=== PATIENT | female | born 1990 | race Caucasian/White ===

== ENCOUNTER 2016-11-23 20:19 | Emergency (ER) | payer MEDICAID, OTHER ==
[~2016-11-23] VITALS: Ht 170.2 cm; Wt 98.0 kg
[2016-11-23 20:20] VITALS: BP 132/79; PULSE 85; RESP 16; TEMP 98.8; O2SAT 98
--- NOTE | 2016-11-23 21:25 | PD ---
HPI Chief Complaint: Medical Clearance Time Seen by Provider: 21:12 Travel History International Travel<30 days: No Contact w/Intl Traveler<30days: No Traveled to known affect area: No History of Present Illness HPI The patient is a 26-year-old female who presents emergency department for a 1 month history of increasing difficulty concentrating, occasional olfactory hallucinations, generalized weakness, and difficulty attending school. The patient has a previous history of psychosis which she states is secondary to depression, anxiety, and bipolar affective disorder. The patient states she was treated at one time with lithium and Risperdal, was followed by a psychiatrist at [facility], however, stopped her medication secondary to side effects. The patient denies any suicidal or homicidal ideation. She denies any alcohol use or tobacco use. The patient does have a child at home, 4 years of age, with her . The patient recently started school once again for molecular biology. She denies any auditory or visual hallucinations. Symptoms are moderate, ongoing for 1 month, there are no known alleviating or exacerbating factors. The patient did have similar symptoms in the past secondary to her depression/bipolar affective disorder. [facility] Past Medical History Narrative Medical Depression, bipolar affective disorder, anxiety ?: Not LMP: NOW Past Surgical History Surgical History: No Previous Surgery Social History Alcohol Use: No Tobacco Use: No Substance Use: No Allergies-Medications (Allergen,Severity, Reaction): Coded Allergies: Tegretol (Verified Allergy, Intermediate, MOUTH ULCERS,LIPS PEEL, 11/23/16) Hydrocodone (Verified Allergy, Mild, MIGRAINE IRWIN, 11/23/16) Reported Meds & Prescriptions Reported Meds & Active Scripts Active No Active Prescriptions or Reported Medications Review of Systems Except as stated in HPI: all other systems reviewed are Neg General / Constitutional: No: Fever Eyes: No: Blurred Vision, Visual changes HENT: Positive: Headaches (migraines), Lightheadedness, Other (olfactory hallucinations) Cardiovascular: No: Chest Pain or Discomfort Respiratory: No: Shortness of Breath Gastrointestinal: No: Nausea, Vomiting, Abdominal Pain Genitourinary: No: Dysuria Neurologic: Positive: Headache, Other (difficulty concentrating), No: Focal Abnormalities, Change in Mentation Psychiatric: Positive: Depression, Mood Disorder, No: Suicidal Ideations, Substance Abuse, Homicidal Ideation Physical Exam Narrative GENERAL: Awake, alert, pleasant 26 year-old female who appears her stated age and is in no acute respiratory distress. SKIN: Warm and dry. HEAD: Atraumatic. Normocephalic. EYES: Pupils equal and round. No scleral icterus. No injection or drainage. ENT: No nasal bleeding or discharge. Mucous membranes pink and moist. NECK: Trachea midline. No JVD. CARDIOVASCULAR: Regular rate and rhythm. No murmur appreciated. RESPIRATORY: No accessory muscle use. Clear to auscultation. Breath sounds equal bilaterally. GASTROINTESTINAL: Abdomen soft, non-tender, nondistended. No rebound tenderness. MUSCULOSKELETAL: No obvious deformities. No clubbing. No cyanosis. No edema. NEUROLOGICAL: Awake and alert. No obvious cranial nerve deficits. Motor grossly within normal limits. Normal speech. Nonfocal. Oriented 4. Follows commands without difficulty. PSYCHIATRIC: Appropriate mood and affect; insight and judgment normal. Data Data Last Documented VS Vital Signs Date Time Temp Pulse Resp B/P Pulse Ox O2 Delivery O2 Flow Rate FiO2 11/23/16 21:34 90 18 132/100 97 Room Air 11/23/16 20:20 98.8 Orders Complete Blood Count With Diff (11/23/16 21:18) Comprehensive Metabolic Panel (11/23/16 21:18) Thyroid Stimulating Hormone (11/23/16 21:18) Urinalysis - C+S If Indicated (11/23/16 21:18) Drug Screen, Random Urine (11/23/16 21:18) Psych Screen (11/23/16 21:18) Ed Urine Pregnancytest Poc (11/23/16 21:18) Ct Brain W/O Iv Contrast(Rout) (11/23/16 ) Labs Laboratory Tests Test 11/23/16 21:29 White Blood Count 12.3 TH/MM3 Red Blood Count 5.20 MIL/MM3 Hemoglobin 14.6 GM/DL Hematocrit 43.4 % Mean Corpuscular Volume 83.4 FL Mean Corpuscular Hemoglobin 28.1 PG Mean Corpuscular Hemoglobin 33.7 % Concent Red Cell Distribution Width 13.8 % Platelet Count 238 TH/MM3 Mean Platelet Volume 8.7 FL Neutrophils (%) (Auto) 59.4 % Lymphocytes (%) (Auto) 31.4 % Monocytes (%) (Auto) 6.7 % Eosinophils (%) (Auto) 1.6 % Basophils (%) (Auto) 0.9 % Neutrophils # (Auto) 7.3 TH/MM3 Lymphocytes # (Auto) 3.9 TH/MM3 Monocytes # (Auto) 0.8 TH/MM3 Eosinophils # (Auto) 0.2 TH/MM3 Basophils # (Auto) 0.1 TH/MM3 CBC Comment DIFF FINAL Differential Comment Sodium Level 137 MEQ/L Potassium Level 3.5 MEQ/L Chloride Level 102 MEQ/L Carbon Dioxide Level 27.4 MEQ/L Anion Gap 8 MEQ/L Blood Urea Nitrogen 12 MG/DL Creatinine 0.91 MG/DL Estimat Glomerular Filtration 75 ML/MIN Rate Random Glucose 130 MG/DL Calcium Level 9.1 MG/DL Total Bilirubin 0.2 MG/DL Aspartate Amino Transf 41 U/L (AST/SGOT) Alanine Aminotransferase 78 U/L (ALT/SGPT) Alkaline Phosphatase 104 U/L Total Protein 8.4 GM/DL Albumin 3.7 GM/DL Thyroid Stimulating Hormone 1.590 uIU/ML 3rd Gen [facility] Medical Decision Making Medical Screen Exam Complete: Yes Emergency Medical Condition: Yes Medical Record Reviewed: Yes Interpretation(s) CT of the brain reveals no acute disease Laboratory Tests Test 11/23/16 21:29 White Blood Count 12.3 TH/MM3 Red Blood Count 5.20 MIL/MM3 Hemoglobin 14.6 GM/DL Hematocrit 43.4 % Mean Corpuscular Volume 83.4 FL Mean Corpuscular Hemoglobin 28.1 PG Mean Corpuscular Hemoglobin 33.7 % Concent Red Cell Distribution Width 13.8 % Platelet Count 238 TH/MM3 Mean Platelet Volume 8.7 FL Neutrophils (%) (Auto) 59.4 % Lymphocytes (%) (Auto) 31.4 % Monocytes (%) (Auto) 6.7 % Eosinophils (%) (Auto) 1.6 % Basophils (%) (Auto) 0.9 % Neutrophils # (Auto) 7.3 TH/MM3 Lymphocytes # (Auto) 3.9 TH/MM3 Monocytes # (Auto) 0.8 TH/MM3 Eosinophils # (Auto) 0.2 TH/MM3 Basophils # (Auto) 0.1 TH/MM3 CBC Comment DIFF FINAL Differential Comment Sodium Level 137 MEQ/L Potassium Level 3.5 MEQ/L Chloride Level 102 MEQ/L Carbon Dioxide Level 27.4 MEQ/L Anion Gap 8 MEQ/L Blood Urea Nitrogen 12 MG/DL Creatinine 0.91 MG/DL Estimat Glomerular Filtration 75 ML/MIN Rate Random Glucose 130 MG/DL Calcium Level 9.1 MG/DL Total Bilirubin 0.2 MG/DL Aspartate Amino Transf 41 U/L (AST/SGOT) Alanine Aminotransferase 78 U/L (ALT/SGPT) Alkaline Phosphatase 104 U/L Total Protein 8.4 GM/DL Albumin 3.7 GM/DL Thyroid Stimulating Hormone 1.590 uIU/ML 3rd Gen Differential Diagnosis Differential diagnosis includes mood disorder, depressive disorder NOS, schizoaffective disorder, frontal lobe tumor, hypothyroidism, anemia, hypocalcemia. Narrative Course IV was established, labs are drawn and sent, and the patient was placed on cardiac telemetry monitoring and continuous pulse oximetry monitoring. CT the brain was ordered to rule out frontal lobe tumor as patient has a history of olfactory hallucinations, which would be unusual for bipolar affective disorder. TSH was also sent to lab. Bedside test was obtained. Psychiatric evaluation was ordered. CT the brain reveals no acute disease, unlikely to be a frontal lobe tumor. Bedside test was negative. Labs reveal mildly elevated AST and ALT. Patient is medically cleared to be evaluated by psychiatry. Disposition as per psych. Diagnosis Primary Impression: Depression Qualified Code: F32.9 - Depression, unspecified depression type Scripts No Active Prescriptions or Reported Meds Condition: Stable Byron Erazo MD Nov 23, 2016 21:24
[2016-11-23 21:34] VITALS: BP 132/100; PULSE 90; RESP 18; O2SAT 97
--- NOTE | 2016-11-23 22:01 | RADRPT ---
EXAM DATE/TIME: 11/23/2016 21:49 [facility] COMPARISON: No previous studies available for comparison. INDICATIONS : Altered mental status with hallucinations. RADIATION DOSE: 39.80 CTDIvol (mGy) MEDICAL HISTORY : None SURGICAL HISTORY : None. ENCOUNTER: Initial ACUITY: 1 day PAIN SCALE: 0/10 LOCATION: cranial TECHNIQUE: Multiple contiguous axial images were obtained of the head. Using automated exposure control and adj ustment of the mA and/or kV according to patient size, radiation dose was kept as low as reasonably a chievable to obtain optimal diagnostic quality images. FINDINGS: No signs of intracranial hemorrhage or acute infarction. 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 No fractures. CONCLUSION: No acute disease. Aristides Goodwin MD on November 23, 2016 at 21:59 Board Certified Radiologist. This report was verified electronically.
[2016-11-23 22:22] LABS: AUTOMATED NEUTROPHIL # 7.3 TH/MM3 (1.8-7.7); BASOPHIL # 0.1 TH/MM3 (0-0.2); BASOPHIL % 0.9 % (0.0-2.0); EOSINOPHIL # 0.2 TH/MM3 (0-0.4); EOSINOPHIL % 1.6 % (0.0-4.0); HEMATOCRIT 43.4 % (35.0-46.0); HEMO FLAGS DIFF FINAL; LYMPH % 31.4 % (9.0-44.0); LYMPHOCYTE # 3.9 TH/MM3 (1.0-4.8); MEAN CELL VOLUME 83.4 FL (80.0-100.0); MEAN CORPUSCULAR HEMOGLOBIN 28.1 PG (27.0-34.0); MEAN CORPUSCULAR HGB CONC 33.7 % (32.0-36.0); MONO % 6.7 % (0.0-8.0); NEUT % 59.4 % (16.0-70.0); PLATELET COUNT 238 TH/MM3 (150-450); RED CELL DISTRIBUTION WIDTH 13.8 % (11.6-17.2); WHITE BLOOD COUNT 12.3 TH/MM3 (4.0-11.0)
[2016-11-23 22:46] LABS: ANION GAP 8 MEQ/L (5-15); AST (GOT) 41 U/L (15-37); BICARBONATE 27.4 MEQ/L (21.0-32.0); BLOOD UREA NITROGEN 12 MG/DL (7-18); CHLORIDE 102 MEQ/L (98-107); GLOMERULAR FILTRATION RATE 75 ML/MIN (>89); POTASSIUM 3.5 MEQ/L (3.5-5.1); SODIUM (NA) 137 MEQ/L (136-145)
[2016-11-23 22:56] LABS: ALKALINE PHOSPHATASE 104 U/L (45-117); ALT (GPT) 78 U/L (10-53); TOTAL BILIRUBIN ADULT 0.2 MG/DL (0.2-1.0)
[2016-11-24 03:23] LABS: AMPHETAMINE, URINE NEG (NEG); BARBITURATES, URINE NEG (NEG); COCAINE, URINE NEG (NEG)
[2016-11-24 03:24] LABS: BACTERIA, URINE RARE /hpf; BLOOD, URINE MOD (NEG); COMMENT (UR) CULT NOT INDICATED; CULTURE IF INDICATED CULT NOT INDICATED; GLUCOSE,URINE NEG (NEG); KETONE, URINE NEG (NEG); NITRITE,URINE NEG (NEG); SQUAMOUS EPITHELIAL CELL URINE 1 /hpf (0-5); URINE COLOR LIGHT-YELLOW (YELLW/STRAW)
== END 2016-11-24 06:39 | disposition home or self-care (01) ==
LOC: NEPD 20:19
DX: F32.9 Major depressive disorder, single episode, unspecified (principal)
CPT/HCPCS: 70450; 80053; 80307; 81001; 84443; 84703; 85025

== ENCOUNTER 2017-02-02 10:44 | Emergency (ER) | payer MEDICAID, OTHER ==
[~2017-02-02] VITALS: Ht 170.2 cm; Wt 115.0 kg
[2017-02-02 10:46] VITALS: BP 134/82; PULSE 80; RESP 16; TEMP 98.1; O2SAT 98
[2017-02-02] MEDS ORDERED: SODIUM CHLOR 0.9% 1000 ML INJ 1,000 ML IV SCH (11:21)
--- NOTE | 2017-02-02 11:23 | PD ---
HPI Chief Complaint: Abdominal Pain Time Seen by Provider: 11:23 Travel History International Travel<30 days: No Contact w/Intl Traveler<30days: No Traveled to known affect area: No History of Present Illness HPI 26-year-old female with a history of anxiety, bipolar disorder, depression presents to the emergency department for evaluation of abdominal pain with nausea and rectal pain. The patient states that she has had "stomach problems" for several years. States that she believes her abdominal pain is related to her anxiety. States that she has been told also in the past that it is secondary to constipation. States that her abdominal pain is worsened over the past several months and specifically today has been constant and severe. States that it is located in the periumbilical region and in her rectum. States she feels as though she needs to have a bowel movement but then does not have one. States that the pain in her rectum is aggravated with sitting on her bottom. States that she also has a history of hemorrhoids and has had some bright red blood on the toilet paper after bowel movement recently. Denies actual bloody stool or black stool. States that yesterday she was having a panic attack and had several episodes of nonbloody nonbilious emesis. No vomiting today. Denies any fever, chills, burning with urination, painful urination, vaginal discharge, cough or cold symptoms. States that she has had some urinary frequency and irregular menses. Last menstrual period one week ago. States that she has not taken any of her psychiatric medications for the past 3 months because she did not like the way they were making her feel however she states that she think she may need to be back on them. No other complaints. PFSH Past Medical History Bipolar Disorder: Yes Depression: Yes Psychiatric: Yes (PTSD, BORDERLINE PERSONALITY DISORDER) Schizophrenia: Yes ?: Not LMP: JANUARY 2017 Past Surgical History Oral Surgery: Yes (WISDOM TEETH ) Tonsillectomy: Yes Other Surgery: Yes (NASAL SEPTUM ) Social History Alcohol Use: No Tobacco Use: No Substance Use: Yes (MARIJUANA) Allergies-Medications (Allergen,Severity, Reaction): Coded Allergies: Tegretol (Verified Allergy, Intermediate, MOUTH ULCERS,LIPS PEEL, 02/02/17) Hydrocodone (Verified Allergy, Mild, MIGRAINE IRWIN, 02/02/17) Reported Meds & Prescriptions Reported Meds & Active Scripts Active No Active Prescriptions or Reported Medications Review of Systems Except as stated in HPI: all other systems reviewed are Neg Physical Exam Narrative GENERAL: Well-nourished and well-developed female patient in no acute distress, anxious appearing. SKIN: Warm and dry. HEAD: Normocephalic and atraumatic. EYES: No injection, drainage, or hyphema noted. PERRLA. EOMI. ENT: No nasal drainage noted. Oropharynx is clear. NECK: Supple and the trachea is midline. CARDIOVASCULAR: Regular rate and rhythm. RESPIRATORY: Breath sounds are equal bilaterally with no accessory muscle use, wheezing, rhonchi, or crackles. GASTROINTESTINAL: Mild generalized tenderness to palpation. Negative McBurney' s point. Negative Martínez sign. Abdomen is soft and nondistended. RECTAL EXAM: No masses or tenderness, stool is brown. Performed in the presence of Aparna HUERTA. MUSCULOSKELETAL: No obvious deformities, swelling, cyanosis, or ecchymosis is present throughout the upper and lower extremities. Patient has full range of motion without any signs of neurovascular compromise. NEUROLOGICAL: Awake, alert, and oriented. Normal speech and gait. Cranial nerves are grossly intact. Data Data Last Documented VS Vital Signs Date Time Temp Pulse Resp B/P Pulse Ox O2 Delivery O2 Flow Rate FiO2 02/02/17 13:20 69 16 122/65 99 Room Air 02/02/17 10:46 98.1 Orders Complete Blood Count With Diff (02/02/17 11:21) Comprehensive Metabolic Panel (02/02/17 11:21) Lipase (02/02/17 11:21) Urinalysis - C+S If Indicated (02/02/17 11:21) Ct Abd/Pel W Iv Contrast(Rout) (02/02/17 11:21) Iv Access Insert/Monitor (02/02/17 11:21) Ecg Monitoring (02/02/17 11:21) Oximetry (02/02/17 11:21) Ondansetron Inj (Zofran Inj) (02/02/17 11:30) Sodium Chlor 0.9% 1000 Ml Inj (Ns 1000 M (02/02/17 11:21) Sodium Chloride 0.9% Flush (Ns Flush) (02/02/17 11:30) Ed Urine Pregnancytest Poc (02/02/17 11:21) Iohexol 350 Inj (Omnipaque 350 Inj) (02/02/17 14:01) Psych Screen (02/02/17 14:31) Labs Laboratory Tests Test 02/02/17 02/02/17 11:25 13:19 White Blood Count 10.3 TH/MM3 Red Blood Count 5.06 MIL/MM3 Hemoglobin 14.5 GM/DL Hematocrit 42.3 % Mean Corpuscular Volume 83.6 FL Mean Corpuscular Hemoglobin 28.7 PG Mean Corpuscular Hemoglobin 34.3 % Concent Red Cell Distribution Width 14.1 % Platelet Count 231 TH/MM3 Mean Platelet Volume 8.7 FL Neutrophils (%) (Auto) 51.4 % Lymphocytes (%) (Auto) 36.1 % Monocytes (%) (Auto) 9.6 % Eosinophils (%) (Auto) 2.3 % Basophils (%) (Auto) 0.6 % Neutrophils # (Auto) 5.3 TH/MM3 Lymphocytes # (Auto) 3.7 TH/MM3 Monocytes # (Auto) 1.0 TH/MM3 Eosinophils # (Auto) 0.2 TH/MM3 Basophils # (Auto) 0.1 TH/MM3 CBC Comment DIFF FINAL Differential Comment Sodium Level 140 MEQ/L Potassium Level 4.1 MEQ/L Chloride Level 107 MEQ/L Carbon Dioxide Level 24.1 MEQ/L Anion Gap 9 MEQ/L Blood Urea Nitrogen 13 MG/DL Creatinine 0.84 MG/DL Estimat Glomerular Filtration 82 ML/MIN Rate Random Glucose 76 MG/DL Calcium Level 9.3 MG/DL Total Bilirubin 0.2 MG/DL Aspartate Amino Transf 25 U/L (AST/SGOT) Alanine Aminotransferase 61 U/L (ALT/SGPT) Alkaline Phosphatase 78 U/L Total Protein 7.7 GM/DL Albumin 3.7 GM/DL Lipase 293 U/L Urine Color LIGHT-YELLOW Urine Turbidity CLEAR Urine pH 6.0 Urine Specific Sunset 1.008 Urine Protein NEG mg/dL Urine Glucose (UA) NEG mg/dL Urine Ketones NEG mg/dL Urine Occult Blood NEG Urine Nitrite NEG Urine Bilirubin NEG Urine Urobilinogen LESS THAN 2.0 MG/DL Urine Leukocyte Esterase TRACE Urine RBC LESS THAN 1 /hpf Urine WBC 2 /hpf Urine Squamous Epithelial 1 /hpf Cells Urine Bacteria RARE /hpf Microscopic Urinalysis Comment CULT NOT INDICATED MDM Medical Decision Making Medical Screen Exam Complete: Yes Emergency Medical Condition: Yes Differential Diagnosis Colitis versus Crohn's versus constipation versus IBS versus anxiety Narrative Course 26-year-old female presents to the emergency department for evaluation of abdominal pain and rectal pain. Patient is afebrile, vital signs are stable. She has some generalized abdominal tenderness but no peritoneal signs. Rectal examination is unremarkable. IV access is obtained, labs have been drawn and sent. Patient is administered IV fluids and Zofran. CT of the abdomen and pelvis has been ordered and is pending. CBC is unremarkable. CMP is unremarkable. Urinalysis shows trace leukocyte esterase and rare bacteria, otherwise unremarkable. ED urine test is negative. CT of the abdomen and pelvis is negative. Patient has remained stable here in the emergency department. She likely has irritable bowel syndrome secondary to her anxiety. She is requesting to speak with psychiatry as she agrees that this is likely secondary to her anxiety and she is off of her medications. Therefore psych screening has been ordered. Patient is medically cleared for psychiatric evaluation and disposition. Diagnosis Primary Impression: Abdominal pain Qualified Code: R10.84 - Generalized abdominal pain Additional Impression: Mood disorder Med/Other Pt SpecificInfo: No Change to Meds Scripts No Active Prescriptions or Reported Meds Condition: Tayla Rosas Feb 02, 2017 11:23
[2017-02-02] MEDS ORDERED: SODIUM CHLORIDE 0.9% FLUSH 10 ML FLUSH IV FLUSH PRN (11:30)
[2017-02-02] MEDS ORDERED: ONDANSETRON HCL 4 MG/2 ML VIAL IVP ONE (11:30)
[2017-02-02 11:34] LABS: AUTOMATED NEUTROPHIL # 5.3 TH/MM3 (1.8-7.7); BASOPHIL # 0.1 TH/MM3 (0-0.2); BASOPHIL % 0.6 % (0.0-2.0); EOSINOPHIL # 0.2 TH/MM3 (0-0.4); EOSINOPHIL % 2.3 % (0.0-4.0); HEMATOCRIT 42.3 % (35.0-46.0); HEMO FLAGS DIFF FINAL; LYMPH % 36.1 % (9.0-44.0); LYMPHOCYTE # 3.7 TH/MM3 (1.0-4.8); MEAN CELL VOLUME 83.6 FL (80.0-100.0); MEAN CORPUSCULAR HEMOGLOBIN 28.7 PG (27.0-34.0); MEAN CORPUSCULAR HGB CONC 34.3 % (32.0-36.0); MONO % 9.6 % (0.0-8.0); NEUT % 51.4 % (16.0-70.0); PLATELET COUNT 231 TH/MM3 (150-450); RED BLOOD COUNT 5.06 MIL/MM3 (4.00-5.30); RED CELL DISTRIBUTION WIDTH 14.1 % (11.6-17.2); WHITE BLOOD COUNT 10.3 TH/MM3 (4.0-11.0)
[2017-02-02 11:41] VITALS: BP 125/67; PULSE 66; RESP 16; O2SAT 99
[2017-02-02 11:56] LABS: ALT (GPT) 61 U/L (10-53); ANION GAP 9 MEQ/L (5-15); AST (GOT) 25 U/L (15-37); BICARBONATE 24.1 MEQ/L (21.0-32.0); BLOOD UREA NITROGEN 13 MG/DL (7-18); CHLORIDE 107 MEQ/L (98-107); GLOMERULAR FILTRATION RATE 82 ML/MIN (>89); POTASSIUM 4.1 MEQ/L (3.5-5.1); SODIUM (NA) 140 MEQ/L (136-145)
[2017-02-02 11:58] LABS: ALKALINE PHOSPHATASE 78 U/L (45-117); TOTAL BILIRUBIN ADULT 0.2 MG/DL (0.2-1.0)
[2017-02-02 13:20] VITALS: BP 122/65; PULSE 69; RESP 16; O2SAT 99
[2017-02-02 13:50] LABS: BACTERIA, URINE RARE /hpf; BLOOD, URINE NEG (NEG); COMMENT (UR) CULT NOT INDICATED; CULTURE IF INDICATED CULT NOT INDICATED; GLUCOSE,URINE NEG (NEG); KETONE, URINE NEG (NEG); NITRITE,URINE NEG (NEG); SQUAMOUS EPITHELIAL CELL URINE 1 /hpf (0-5); URINE COLOR LIGHT-YELLOW (YELLW/STRAW)
[2017-02-02] MEDS ORDERED: IOHEXOL 350 MG/ML 10 ML VIAL (for RAD DIAG) IV ONE (14:01)
--- NOTE | 2017-02-02 14:23 | RADRPT ---
EXAM DATE/TIME: 02/02/2017 13:40 [facility] COMPARISON: CT BRAIN W/O CONTRAST, November 23, 2016, 21:49. INDICATIONS : Severe abdomen pain, rectal bleeding IV CONTRAST: 97 cc Omnipaque 350 (iohexol) IV ORAL CONTRAST: No oral contrast ingested. RADIATION DOSE: 17.15 CTDIvol (mGy) MEDICAL HISTORY : None SURGICAL HISTORY : None. ENCOUNTER: Initial ACUITY: 1 day PAIN SCALE: 8/10 LOCATION: lower abdomen TECHNIQUE: Volumetric scanning of the abdomen and pelvis was performed. Using automated exposure control and ad justment of the mA and/or kV according to patient size, radiation dose was kept as low as reasonably achievable to obtain optimal diagnostic quality images. FINDINGS: LOWER LUNGS: The visualized lower lungs are clear. LIVER: Homogeneous density without lesion. There is no dilation of the biliary tree. No calcified gallston es. SPLEEN: Normal size without lesion. PANCREAS: Within normal limits. KIDNEYS: Normal in size and shape. There is no mass, stone or hydronephrosis. ADRENAL GLANDS: Within normal limits. VASCULAR: There is no aortic aneurysm. BOWEL/MESENTERY: The stomach, small bowel, and colon demonstrate no acute abnormality. There is no free intraperitone al air or fluid. ABDOMINAL WALL: Within normal limits. RETROPERITONEUM: There is no lymphadenopathy. BLADDER: No wall thickening or mass. REPRODUCTIVE: Within normal limits. INGUINAL: There is no lymphadenopathy or hernia. MUSCULOSKELETAL: Within normal limits for patient age. CONCLUSION: 1. Negative examination. Musa Perez MD on February 02, 2017 at 14:17 Board Certified Radiologist. This report was verified electronically.
[2017-02-02 16:00] VITALS: BP 126/86; PULSE 65; RESP 16; O2SAT 99
[2017-02-02] MEDS ORDERED: HYDR1CAP30 PO (19:13)
[2017-02-02] MEDS ORDERED: AFRI0.059 EACH NARE (19:14)
[2017-02-02] MEDS ORDERED: EXCETAB PO (19:14)
[2017-02-02] MEDS ORDERED: [UNRECOGNIZED DRUG - CODE] TOPICAL (19:15)
== END 2017-02-02 20:25 | disposition home or self-care (01) ==
LOC: NEPC 10:44 → NEPJ 20:25
DX: R10.84 Generalized abdominal pain (principal); F39 Unspecified mood [affective] disorder; K62.89 Other specified diseases of anus and rectum; R35.0 Frequency of micturition; Z86.59 Personal history of other mental and behavioral disorders
CPT/HCPCS: 74177; 80053; 81001; 83690; 84703; 85025; 96361; 96374; 99284; J2405; J7030; Q9967

== ENCOUNTER 2017-03-02 13:43 | Inpatient (IN) | payer MEDICAID, OTHER ==
[~2017-03-02 13:43] MED LIST: AFRI0.059 EACH NARE; EXCETAB PO; HYDR1CAP30 PO; [UNRECOGNIZED DRUG - CODE] TOPICAL
--- NOTE | 2017-03-02 13:46 | PD ---
HPI Chief Complaint: ba Time Seen by Provider: 13:46 Travel History International Travel<30 days: No Contact w/Intl Traveler<30days: No Traveled to known affect area: No History of Present Illness HPI 26 year old female with history of bipolar disorder, currently not taking any medication stating that she "weaned herself off" presents to the emergency department under Steele act for psychiatric evaluation. Patient states she has been having increased anxiety which is caused by more frequent suicidal thoughts. Patient states she does not want to but the thoughts are constant. She denies any plan. Reports daily marijuana use to help her sleep. Denies any other symptoms at this time. PFSH Past Medical History Bipolar Disorder: Yes Depression: Yes Psychiatric: Yes (PTSD, BORDERLINE PERSONALITY DISORDER) Schizophrenia: Yes Past Surgical History Oral Surgery: Yes (WISDOM TEETH ) Tonsillectomy: Yes Other Surgery: Yes (NASAL SEPTUM ) Social History Alcohol Use: No Tobacco Use: No Substance Use: No (Patient denies. ) Allergies-Medications (Allergen,Severity, Reaction): Coded Allergies: Tegretol (Verified Allergy, Intermediate, MOUTH ULCERS,LIPS PEEL, 02/02/17) Hydrocodone (Verified Allergy, Mild, MIGRAINE IRWIN, 02/02/17) Reported Meds & Prescriptions Reported Meds & Active Scripts Active Reported Compound W Topical (Salicylic Acid) 17 % Gel 1 Applic TOPICAL DIRECTED Excedrin Migraine (Sqosset-Pgpozwntkxfrw-Eikeyrlr) 250-250-65 Mg Tab 2 Tab PO PRN Afrin 12 Hour Nasal (Oxymetazoline HCl) 0.05% Rosanky 2-3 Rosanky EACH NARE Q12H PRN Hydroxyzine Pamoate 25 Mg Cap 25 Mg PO HS PRN Review of Systems Except as stated in HPI: all other systems reviewed are Neg Physical Exam Narrative GENERAL: Well-nourished male patient, no acute distress SKIN: Focused skin assessment warm/dry. HEAD: Atraumatic. Normocephalic. EYES: Pupils equal and round. No scleral icterus. No injection or drainage. ENT: No nasal bleeding or discharge. Mucous membranes pink and moist. NECK: Trachea midline. No JVD. CARDIOVASCULAR: Regular rate and rhythm. No murmur appreciated. RESPIRATORY: No accessory muscle use. Clear to auscultation. Breath sounds equal bilaterally. GASTROINTESTINAL: Abdomen soft, non-tender, nondistended. Hepatic and splenic margins not palpable. MUSCULOSKELETAL: No obvious deformities. No clubbing. No cyanosis. No edema. NEUROLOGICAL: Awake and alert. No obvious cranial nerve deficits. Motor grossly within normal limits. Normal speech. Data Data Last Documented VS Vital Signs Date Time Temp Pulse Resp B/P Pulse Ox O2 Delivery O2 Flow Rate FiO2 03/02/17 17:50 97.8 85 18 136/84 98 Room Air Orders Complete Blood Count With Diff (03/02/17 13:45) Basic Metabolic Panel (Bmp) (03/02/17 13:45) Ed Urine Pregnancytest Poc (03/02/17 13:45) Psych Screen (03/02/17 13:45) Drug Screen, Random Urine (03/02/17 13:45) Alcohol (Ethanol) (03/02/17 13:45) Labs Laboratory Tests Test 03/02/17 14:04 White Blood Count 12.7 TH/MM3 Red Blood Count 5.34 MIL/MM3 Hemoglobin 15.1 GM/DL Hematocrit 44.6 % Mean Corpuscular Volume 83.4 FL Mean Corpuscular Hemoglobin 28.3 PG Mean Corpuscular Hemoglobin 34.0 % Concent Red Cell Distribution Width 14.1 % Platelet Count 222 TH/MM3 Mean Platelet Volume 9.2 FL Neutrophils (%) (Auto) 61.8 % Lymphocytes (%) (Auto) 30.1 % Monocytes (%) (Auto) 6.8 % Eosinophils (%) (Auto) 0.6 % Basophils (%) (Auto) 0.7 % Neutrophils # (Auto) 7.9 TH/MM3 Lymphocytes # (Auto) 3.8 TH/MM3 Monocytes # (Auto) 0.9 TH/MM3 Eosinophils # (Auto) 0.1 TH/MM3 Basophils # (Auto) 0.1 TH/MM3 CBC Comment DIFF FINAL Differential Comment Sodium Level 136 MEQ/L Potassium Level 3.9 MEQ/L Chloride Level 105 MEQ/L Carbon Dioxide Level 21.4 MEQ/L Anion Gap 10 MEQ/L Blood Urea Nitrogen 12 MG/DL Creatinine 0.77 MG/DL Estimat Glomerular Filtration 91 ML/MIN Rate Random Glucose 79 MG/DL Calcium Level 10.0 MG/DL Urine Opiates Screen NEG Urine Barbiturates Screen NEG Urine Amphetamines Screen NEG Urine Benzodiazepines Screen NEG Urine Cocaine Screen NEG Urine Cannabinoids Screen POS Ethyl Alcohol Level LESS THAN 3 MG/DL MDM Medical Decision Making Medical Screen Exam Complete: Yes Emergency Medical Condition: Yes Medical Record Reviewed: Yes Differential Diagnosis Mood disorder versus personality disorder versus adjustment reaction disorder Narrative Course 26 rolled female presents to the emergency department under a Steele act for psychiatric evaluation. Patient appears without distress. Lab work is without acute concern. Patient is medically cleared to undergo psychiatric screening for further evaluation and disposition. Mental health screening discussed with the patient. Psychiatric screen ordered. Diagnosis Primary Impression: Mood disorder Condition: Stable Pam Tadeo Mar 02, 2017 13:46
[2017-03-02 14:38] VITALS: BP 141/81; PULSE 68; RESP 14; TEMP 97.8; O2SAT 99
[2017-03-02 15:09] LABS: AUTOMATED NEUTROPHIL # 7.9 TH/MM3 (1.8-7.7); BASOPHIL # 0.1 TH/MM3 (0-0.2); BASOPHIL % 0.7 % (0.0-2.0); EOSINOPHIL # 0.1 TH/MM3 (0-0.4); EOSINOPHIL % 0.6 % (0.0-4.0); HEMATOCRIT 44.6 % (35.0-46.0); HEMO FLAGS DIFF FINAL; LYMPH % 30.1 % (9.0-44.0); LYMPHOCYTE # 3.8 TH/MM3 (1.0-4.8); MEAN CELL VOLUME 83.4 FL (80.0-100.0); MEAN CORPUSCULAR HEMOGLOBIN 28.3 PG (27.0-34.0); MONO % 6.8 % (0.0-8.0); NEUT % 61.8 % (16.0-70.0); PLATELET COUNT 222 TH/MM3 (150-450); RED BLOOD COUNT 5.34 MIL/MM3 (4.00-5.30); RED CELL DISTRIBUTION WIDTH 14.1 % (11.6-17.2); WHITE BLOOD COUNT 12.7 TH/MM3 (4.0-11.0)
[2017-03-02 15:25] LABS: AMPHETAMINE, URINE NEG (NEG); BARBITURATES, URINE NEG (NEG); COCAINE, URINE NEG (NEG)
[2017-03-02 15:34] LABS: ANION GAP 10 MEQ/L (5-15); BICARBONATE 21.4 MEQ/L (21.0-32.0); BLOOD UREA NITROGEN 12 MG/DL (7-18); CHLORIDE 105 MEQ/L (98-107); GLOMERULAR FILTRATION RATE 91 ML/MIN (>89); POTASSIUM 3.9 MEQ/L (3.5-5.1); SODIUM (NA) 136 MEQ/L (136-145)
[2017-03-02 17:50] VITALS: BP 136/84; PULSE 85; RESP 18; TEMP 97.8; O2SAT 98
[2017-03-02] MEDS ORDERED: OLANZapine 5 MG TAB PO ONE (21:30)
[2017-03-02] MEDS: hydrOXYzine PAMOATE 25 MG CAP PO PRN (21:34)
[2017-03-02 22:00] VITALS: BP 150/72; PULSE 83; RESP 18; O2SAT 98
[2017-03-03 02:00] VITALS: BP 137/78; PULSE 56; RESP 18; O2SAT 98
[2017-03-03 06:32] VITALS: BP 138/82; PULSE 78; RESP 18; O2SAT 99
[2017-03-03] MEDS ORDERED: LORazepam 1 MG TAB PO PRN (11:30)
[2017-03-03] MEDS ORDERED: MAGNESIUM HYDROXIDE SUSP 30 ML CUP PO PRN (11:30)
[2017-03-03] MEDS ORDERED: ALUMINUM/MAGNESIUM/SIMETH 30 ML CUP PO PRN (11:30)
[2017-03-03] MEDS ORDERED: ACETAMINOPHEN 325 MG TAB PO PRN (11:30)
[2017-03-03] MEDS ORDERED: LORazepam 2 MG/ML VIAL IM PRN (11:30)
[2017-03-03] MEDS ORDERED: diphenhydrAMINE HCL 50 MG/ML VIAL IM PRN (11:30)
[2017-03-03] MEDS ORDERED: diphenhydrAMINE HCL 50 MG CAP PO PRN (11:30)
--- NOTE | 2017-03-03 11:37 | HHI.HP ---
Provisional Diagnosis Admission Date [place]. Bipolar disorder, mixed, with psychotic features. Certification of Person's Competence To Provide Express and Informed Consent I have personally examined Lupe Vaca , a person being served at [facility] on, Mar 03, 2017 11:31. Express and informed consent means consent voluntarily given in writing, by a competent person, after sufficient explanation and disclosure of the subject matter involved to enable the person to make a knowing and willful decision without any element of force, fraud, deceit, duress, or other form of constraint or coercion. This person is 18 years of age or older, is not now known to be incompetent to consent to treatment with a guardian advocate, and does not have a health care surrogate or proxy currently making medical treatment decisions. I have found this person to be one of the following: [x] Competent to provide express and informed consent, as defined above, for voluntary admission to this facility and is competent to provide express and informed consent for treatment. He/she has the consistent capacity to make well reasoned, willful, and knowing decisions concerning his or her medical or mental health treatment. The person fully and consistently understands the purpose of the admission for examination/placement and is fully capable of personally exercising all rights assured under [place] Incompetent to provide express and informed consent to voluntary admission, and this is incompetent to provide express and informed consent to treatment. The person must be transferred to involuntary status and a petition for a guardian advocate filed with the Circuit Court. [] Refusing to provide express and informed consent to voluntary admission but is competent to provide express and informed consent for treatment. The person must be discharged or transferred to involuntary status. Form shall be completed within 24 hours of a person's arrival at the receiving facility and filed in the clinical record of each person: 1. Admitted on a voluntary basis 2. Permitted to provide express and informed consent to his/her own treatment 3. Allowed to transfer from involuntary to voluntary status 4. Prior to permitting a person to consent to his or her own treatment after having been previously found incompetent to consent to treatment. History of Present Illness Capacity: Has Capacity HPI This is a 26-year-old female with a history of bipolar disorder, formerly treated at [facility], who presents with ruminating suicidal ideation. She apparently describes a "singer" playing in her mind 24 hours a day along with other personalities in her mind which are directing her to commit suicide. She does not want to commit suicide but these experiences, which this physician feels are evidence of psychosis, are directing her to kill herself and making her very anxious and uncomfortable. The patient describes other symptoms of anxiety, depressed mood, insomnia, decreased energy, feelings of hopelessness and helplessness, as well as suicidal ideation. She is attempting to go to school but her symptoms are interfering with her ability to pay attention and they are interfering with her ability to study. She is and has a young daughter, and wants to live for these people. However she is afraid she will get into her suicidal impulses. She can describe multiple ways of killing herself including overdosing on [id number] medicine, walking out into traffic, etc. Approximately one month ago the patient began smoking marijuana on a nightly basis to help her sleep. She states that the smoking of marijuana does help her sleep but that it does not improve or make the movie and personalities in her brain any worse or better. Patient stop taking medicines prescribed for her disorder. She states these medicines caused significant weight gain, menstrual irregularities, sexual dysfunction, etc. Review of Systems ROS Limitations: Clinical Condition Past Psych History Psychological trauma history Patient does deny a history of psychological trauma. She has been diagnosed with bipolar disorder in the past, receiving treatment at [facility]. She became noncompliant with treatment approximately 6 months ago because of side effects. Violence risk - others (6 mos) Minimal Violence risk - self (6 mos) Moderate to severe. Substance Abuse History Drugs/Alcohol past 12 months Smoking marijuana daily for the last month. Past Family Social History Coded Allergies: Tegretol (Verified Allergy, Intermediate, MOUTH ULCERS,LIPS PEEL, 02/02/17) Hydrocodone (Verified Allergy, Mild, MIGRAINE IRWIN, 02/02/17) Reported Medications Hqxzeqg-Kwraxogynlmma-Dcyzxxao (Excedrin Migraine)250-250-65 Mg Tab2 Tab PO PRN (MIGRAINE HEADACHE) Ref 0 02/02/17 Hydroxyzine Pamoate 25 Mg Cap25 Mg PO HS PRN (INSOMNIA) Ref 0 02/02/17 Discontinued Reported Medications Salicylic Acid Topical (Compound W Topical)17 % Gel1 Applic TOPICAL DIRECTED #1 TUBE Ref 0 02/02/17 Oxymetazoline Nasal (Afrin 12 Hour Nasal)0.05% Spray2-3 [place] EACH NARE Q12H PRN (NASAL CONGESTION) #1 BOTTLE Ref 0 02/02/17 Current Medications Medications (Trade) Dose Ordered Sig/Day Route Start Time Stop Time Status Last Admin (Vistaril) 25 mg HS PRN PO 03/02/17 21:30 03/02/17 21:34 (Ativan) 1 mg Q6H PRN PO 03/03/17 11:30 UNV (Ativan Inj) 1 mg Q6H PRN IM 03/03/17 11:30 UNV (Benadryl) 50 mg Q6H PRN PO 03/03/17 11:30 UNV (Benadryl Inj) 50 mg Q6H PRN IM 03/03/17 11:30 UNV (Tylenol) 650 mg Q4H PRN PO 03/03/17 11:30 UNV (Milk Of Magnesia Liq) 30 ml DAILY PRN PO 03/03/17 11:30 UNV (Mag-Al Plus Susp Liq) 30 ml Q6H PRN PO 03/03/17 11:30 UNV (Desyrel) 50 mg HS PRN PO 03/03/17 11:30 UNV Family History Significant family illness history of mood disorders and schizophrenia on mother 's side and father's side of the family. Social History Patient lives with her and daughter. Besides the smoking of marijuana over the last month, she denies a significant history of drug abuse. She is a student currently and not employed. She is also a homemaker. She is treated at [facility] but is currently receiving only therapy due to previous side effects to antipsychotic medication. Patient's Strengths (min. 2) Verbal and resilient. Physical Exam GENERAL: SKIN: Warm and dry. HEAD: Normocephalic. EYES: No scleral icterus. No injection or drainage. NECK: Supple, trachea midline. No JVD or lymphadenopathy. CARDIOVASCULAR: Regular rate and rhythm without murmurs, gallops, or rubs. RESPIRATORY: Breath sounds equal bilaterally. No accessory muscle use. GASTROINTESTINAL: Abdomen soft, non-tender, nondistended. MUSCULOSKELETAL: No cyanosis, or edema. BACK: Nontender without obvious deformity. No CVA tenderness. Vital Signs Vital Signs Date Time Temp Pulse Resp B/P Pulse Ox O2 Delivery O2 Flow Rate FiO2 03/03/17 06:32 78 18 138/82 99 Room Air 03/02/17 17:50 97.8 I/O 03/02/17 03/02/17 03/03/17 08:00 16:00 00:00 Intake Total 480 ml Balance 480 ml Mental Status Examination Speech: Rapid Orientation: x3 Memory: Unremarkable Thought Process: Circumstantial, Flight of Ideas Thought Content: Bizarre thinking Hallucination Type: Auditory Attention and Concentration: Easily Distracted Suicidal Ideation: Yes Previous Suicide Attempts: No Homicidal Ideation: No Previous Homicide Attempts: No Insight: Fair Judgment: Unrealistic Affect: Good Mood: Appropriate Motor Activity: Normal gait Assessment & Plan Problem List: (1) Bipolar disorder, current episode mixed, severe, with psychotic features ICD Code: F31.64 Assessment & Plan Estimated LOS: 4-5 days this is a severe exacerbation of an underlying chronic bipolar disorder that has not been adequately medicated over the last 6 months. This physician is planning an EKG and metabolic panels because the patient has had difficulty with her weight and chest pain over the last months, as a result of previous antipsychotic use. We will also check for blood sugar changes as a result of previous antipsychotic use. This physician will further assess the manager social to contact the patient's regarding her recent behavior pattern and to help assess her suicidal ruminations. The patient's care and recent behavior are being discussed with the emergency department nurse and the patient is felt to be at significant risk of harm to herself. Due to the patient's ruminative nature of committing suicide and the command nature of her auditory hallucinations telling her to kill herself, this physician feel she is at great potential threat of harm to herself. She was ordered Latuda as a mood stabilizing medication with antipsychotic properties that has little in the way of weight gain, blood sugar changes, prolactin changes, and cardiac issues. Alek Pickens MD Mar 03, 2017 11:37
[2017-03-03] MEDS ORDERED: PILL SPLITTER OTHER PRN (13:45)
[2017-03-03] MEDS: LURASIDONE 40 MG TAB PO SCH (18:00)
[2017-03-03] MEDS ORDERED: LURASIDONE 40 MG TAB PO SCH (18:00)
[2017-03-03 18:08] VITALS: BP 131/65; PULSE 17; RESP 17; TEMP 97.9; O2SAT 99
[2017-03-03] MEDS: lamoTRIgine 25 MG TAB PO SCH (21:20)
[2017-03-03] MEDS: traZODone HCL 50 MG TAB PO PRN (21:57)
[2017-03-04 06:08] VITALS: BP 130/57; PULSE 82; RESP 18; TEMP 98.3; O2SAT 98
[2017-03-04] MEDS: lamoTRIgine 25 MG TAB PO SCH ×2 (09:23→21:00)
[2017-03-04] MEDS: buPROPion HCL 150 MG SUSTAINED RELEASE TAB PO SCH (09:23)
[2017-03-04 10:31] LABS: AUTOMATED NEUTROPHIL # 6.1 TH/MM3 (1.8-7.7); BASOPHIL # 0.1 TH/MM3 (0-0.2); BASOPHIL % 0.7 % (0.0-2.0); EOSINOPHIL # 0.2 TH/MM3 (0-0.4); EOSINOPHIL % 1.7 % (0.0-4.0); HEMATOCRIT 41.6 % (35.0-46.0); HEMO FLAGS DIFF FINAL; LYMPH % 28.1 % (9.0-44.0); LYMPHOCYTE # 2.8 TH/MM3 (1.0-4.8); MEAN CORPUSCULAR HEMOGLOBIN 28.9 PG (27.0-34.0); MEAN CORPUSCULAR HGB CONC 34.4 % (32.0-36.0); MONO % 8.4 % (0.0-8.0); NEUT % 61.1 % (16.0-70.0); PLATELET COUNT 189 TH/MM3 (150-450); RED BLOOD COUNT 4.96 MIL/MM3 (4.00-5.30); RED CELL DISTRIBUTION WIDTH 14.1 % (11.6-17.2); WHITE BLOOD COUNT 9.9 TH/MM3 (4.0-11.0)
[2017-03-04 11:32] LABS: ALKALINE PHOSPHATASE 87 U/L (45-117); ALT (GPT) 55 U/L (10-53); ANION GAP 9 MEQ/L (5-15); AST (GOT) 24 U/L (15-37); BICARBONATE 24.7 MEQ/L (21.0-32.0); BLOOD UREA NITROGEN 14 MG/DL (7-18); CHLORIDE 104 MEQ/L (98-107); GLOMERULAR FILTRATION RATE 71 ML/MIN (>89); HDL CHOLESTEROL 29.9 MG/DL (40.0-60.0); LDL CHOLESTEROL 97 MG/DL (0-99); POTASSIUM 3.6 MEQ/L (3.5-5.1); SODIUM (NA) 138 MEQ/L (136-145); TOTAL BILIRUBIN ADULT 0.2 MG/DL (0.2-1.0)
[2017-03-04 14:30] LABS: HEMOGLOBIN A1b 1.6 %; HEMOGLOBIN Ao 85.5 %; HEMOGLOBIN P3 3.8 %
--- NOTE | 2017-03-04 15:45 | HHI.PYPN ---
Subjective Remarks Patient reports she feels much better and she would like to be discharged. This physician is uncertain of her stability but will consider discharge this weekend if she continues to do well. She has not had a actual opportunity to respond to medicines yet. Review of Systems ROS Limitations: Clinical Condition Objective Alert: Yes Bonnyman: Person, Place, Date, Situation Mood: Calm Affect: Euthymic Memory Intact: Immediate, Recent, Remote Hallucinations: Other Delusions: Yes Delusion Type: Other Suicidal: Ideation Homicidal: Ideation Insight/Judgment Impaired Labs Test 03/04/17 09:20 White Blood Count 9.9 TH/MM3 Red Blood Count 4.96 MIL/MM3 Hemoglobin 14.3 GM/DL Hematocrit 41.6 % Mean Corpuscular Volume 84.0 FL Mean Corpuscular Hemoglobin 28.9 PG Mean Corpuscular Hemoglobin 34.4 % Concent Red Cell Distribution Width 14.1 % Platelet Count 189 TH/MM3 Mean Platelet Volume 9.0 FL Neutrophils (%) (Auto) 61.1 % Lymphocytes (%) (Auto) 28.1 % Monocytes (%) (Auto) 8.4 % Eosinophils (%) (Auto) 1.7 % Basophils (%) (Auto) 0.7 % Neutrophils # (Auto) 6.1 TH/MM3 Lymphocytes # (Auto) 2.8 TH/MM3 Monocytes # (Auto) 0.8 TH/MM3 Eosinophils # (Auto) 0.2 TH/MM3 Basophils # (Auto) 0.1 TH/MM3 CBC Comment DIFF FINAL Differential Comment Sodium Level 138 MEQ/L Potassium Level 3.6 MEQ/L Chloride Level 104 MEQ/L Carbon Dioxide Level 24.7 MEQ/L Anion Gap 9 MEQ/L Blood Urea Nitrogen 14 MG/DL Creatinine 0.95 MG/DL Estimat Glomerular Filtration 71 ML/MIN Rate Random Glucose 114 MG/DL Calcium Level 9.2 MG/DL Total Bilirubin 0.2 MG/DL Aspartate Amino Transf 24 U/L (AST/SGOT) Alanine Aminotransferase 55 U/L (ALT/SGPT) Alkaline Phosphatase 87 U/L Total Protein 7.7 GM/DL Albumin 3.6 GM/DL Triglycerides Level 221 MG/DL Cholesterol Level 171 MG/DL LDL Cholesterol 97 MG/DL HDL Cholesterol 29.9 MG/DL Cholesterol/HDL Ratio 5.71 RATIO Vitamin B12 Level 444 PG/ML Thyroid Stimulating Hormone 1.890 uIU/ML 3rd Gen Vitals/IOs Vital Signs Date Time Temp Pulse Resp B/P Pulse Ox O2 Delivery O2 Flow Rate FiO2 03/04/17 06:08 98.3 82 18 130/57 98 03/03/17 06:32 Room Air Assessment & Plan Problem List: (1) Bipolar disorder, current episode mixed, severe, with psychotic features ICD Code: F31.64 Assessment & Plan Estimated LOS: 1-2 days as medications have a chance to come up to therapeutic blood levels, if patient maintains stability and wants to be discharged, this physician is willing to release her. Justification for Cont. Inpt. Patient likely to decompensate if discharged today and may follow her thoughts of harming herself. Alek Pickens MD Mar 04, 2017 15:45
[2017-03-04 17:53] VITALS: BP 129/61; PULSE 78; RESP 18; TEMP 98.3; O2SAT 99
[2017-03-04] MEDS: LURASIDONE 40 MG TAB PO SCH (18:07)
--- NOTE | 2017-03-04 18:44 | EKG ---
Date Performed: 03/04/2017 Time Performed: 07:30:51 PTAGE: 26 years EKG: Sinus rhythm WITH SINUS ARRHYTHMIA NORMAL ECG NO PREVIOUS TRACING DOCTOR: [place] Interpretating Date/Time 03/04/2017 18:40:35
[2017-03-04] MEDS: traZODone HCL 50 MG TAB PO PRN (21:42)
[2017-03-05] MEDS: hydrOXYzine PAMOATE 25 MG CAP PO PRN (00:42)
[2017-03-05 06:37] VITALS: BP 125/65; PULSE 105; RESP 16; TEMP 98.2; O2SAT 98
[2017-03-05] MEDS: lamoTRIgine 25 MG TAB PO SCH (08:23)
[2017-03-05] MEDS: buPROPion HCL 150 MG SUSTAINED RELEASE TAB PO SCH (08:23)
--- NOTE | 2017-03-05 13:26 | HHI.DS ---
Psychiatry Discharge Summary Inpatient Psychiatric care?: Yes Advance Directive: No Reason Not Provided: gave [place] [facility] AdvanceDirective: No Health Care Proxy: No Admission Admission Date Mar 03, 2017 at 11:27 Admission Diagnosis: (1) Bipolar disorder, current episode mixed, severe, with psychotic features ICD Code: F31.64 Brief History This is a 26-year-old female with a history of bipolar disorder, formerly treated at [facility], who presents with ruminating suicidal ideation. She apparently describes a "singer" playing in her mind 24 hours a day along with other personalities in her mind which are directing her to commit suicide. She does not want to commit suicide but these experiences, which this physician feels are evidence of psychosis, are directing her to kill herself and making her very anxious and uncomfortable. The patient describes other symptoms of anxiety, depressed mood, insomnia, decreased energy, feelings of hopelessness and helplessness, as well as suicidal ideation. She is attempting to go to school but her symptoms are interfering with her ability to pay attention and they are interfering with her ability to study. She is and has a young daughter, and wants to live for these people. However she is afraid she will get into her suicidal impulses. She can describe multiple ways of killing herself including overdosing on rvwl-dvv-[id number] medicine, walking out into traffic, etc. Approximately one month ago the patient began smoking marijuana on a nightly basis to help her sleep. She states that the smoking of marijuana does help her sleep but that it does not improve or make the movie and personalities in her brain any worse or better. Patient stop taking medicines prescribed for her disorder. She states these medicines caused significant weight gain, menstrual irregularities, sexual dysfunction, etc. Tobacco Use In Past 30 Days: No Tobacco Past 30 Days Alcohol Use: Never Hospital Course Patient participated in individual and group therapies. She was started on mood stabilizing medicine and reports responding to it almost immediately. For the last 48 hours she has felt stable and requested discharge. No procedures were performed. Results Blood Pressure 125 / 65 Vital Signs Date Time Temp Pulse Resp B/P Pulse Ox O2 Delivery O2 Flow Rate FiO2 03/05/17 06:37 98.2 105 16 125/65 98 03/03/17 06:32 Room Air Laboratory Tests Test 03/02/17 03/04/17 14:04 09:20 White Blood Count 12.7 TH/MM3 (4.0-11.0) Red Blood Count 5.34 MIL/MM3 (4.00-5.30) Neutrophils # (Auto) 7.9 TH/MM3 (1.8-7.7) Urine Cannabinoids Screen POS (NEG) Monocytes (%) (Auto) 8.4 % (0.0-8.0) Estimat Glomerular Filtration 71 ML/MIN (>89) Rate Random Glucose 114 MG/DL (74-106) Alanine Aminotransferase 55 U/L (10-53) (ALT/SGPT) Triglycerides Level 221 MG/DL (42-150) HDL Cholesterol 29.9 MG/DL (40.0-60.0) Laboratory Results Test 03/04/17 09:20 Hemoglobin A1c 5.6 % (4.3-6.0) Triglycerides Level 221 MG/DL (42-150) Cholesterol Level 171 MG/DL (120-200) LDL Cholesterol 97 MG/DL (0-99) HDL Cholesterol 29.9 MG/DL (40.0-60.0) Summary of Procedures None Pending results at discharge: No Medications # of Antipsychotic meds at D/C: 1 Appropriate >1 Antipsych meds?: 1 Approp Antipsych med options 1 - Minimum of three failed multiple trials of monotherapy. 2 - Documented plan to taper to monotherapy due to previous use of multiple meds OR cross-taper in progress at D/C. 3 - Documentation of augmentation of Clozapine. 4 - Justification other than those listed in allowable values 1-3, document here : Discharge Discharge Date: Mar 05, 2017 Discharge Diagnosis: (1) Adjustment disorder with mixed disturbance of emotions and conduct Diagnosis: Principal ICD Code: F43.25 Mental Status Exam at Disch No suicidal or homicidal ideation, plan or intention. No psychotic symptoms. Verbally natalie for safety. Pt Condition on Discharge: Stable Discharge Disposition: Discharge Home Discharge Instructions Diet Instructions: As Tolerated, No Restrictions Activities you can perform: Regular-No Restrictions Discharge Time <= 30 minutes Discharge/Advance Care Plan Health Problems: (1) Bipolar disorder, current episode mixed, severe, with psychotic features Goals to promote your health * To prevent worsening of your condition and complications * To maintain your health at the optimal level Directions to meet your goals Take your medications as prescribed Follow your dietary instruction Follow activity as directed Keep your appointments as scheduled Take your immunizations and boosters as scheduled If your symptoms worsen call your PCP, if no PCP go to Urgent Care Center or Emergency Room For 06/06 questions related to your inpatient stay or results of tests pending at discharge, please contact Dr. Alek Pickens at Smoking is Dangerous to Your Health. Avoid second hand smoking Alek Pickens MD Mar 05, 2017 13:25
[2017-03-05] MEDS ORDERED: LURA40 PO (13:27)
[2017-03-05] MEDS ORDERED: LAMO25 PO (13:27)
[2017-03-05] MEDS ORDERED: BUPR150CR PO (13:27)
== END 2017-03-05 14:30 | disposition home or self-care (01) | DRG 882 ==
LOC: NEDAMB 13:43 → NEDA 03-03 11:27 → H260 03-03 14:10
PROVIDERS: ADMIT Psychiatry & Neurology Psychiatry; ATTEND Psychiatry & Neurology Psychiatry
DX: F43.25 Adjustment disorder with mixed disturbance of emotions and conduct (principal); R45.851 Suicidal ideations; Z91.19 Patient's noncompliance with other medical treatment and regimen; F20.9 Schizophrenia, unspecified; F12.90 Cannabis use, unspecified, uncomplicated; Z88.8 Allergy status to other drugs, medicaments and biological substances; Z81.8 Family history of other mental and behavioral disorders; F60.3 Borderline personality disorder; F43.10 Post-traumatic stress disorder, unspecified; F31.9 Bipolar disorder, unspecified
CPT/HCPCS: 80048; 80053; 80061; 80307; 82607; 83036; 84443; 84703; 85025; 93005; 99284; Q0177

== ENCOUNTER 2017-03-09 13:59 | Emergency (ER) | payer MEDICAID, OTHER ==
[~2017-03-09] VITALS: Ht 170.2 cm; Wt 105.0 kg
[~2017-03-09 13:59] MED LIST changes: -AFRI0.059 EACH NARE; +BUPR150CR PO; +LAMO25 PO; +LURA40 PO; -[UNRECOGNIZED DRUG - CODE] TOPICAL
[2017-03-09 14:08] VITALS: TEMP 98.4
[2017-03-09 14:13] VITALS: BP 134/81; PULSE 76; RESP 18; TEMP 98.4; O2SAT 100
--- NOTE | 2017-03-09 14:26 | PD ---
HPI Chief Complaint: OD/ Ingestion Time Seen by Provider: 14:21 Travel History International Travel<30 days: No Contact w/Intl Traveler<30days: No Traveled to known affect area: No History of Present Illness HPI 26-year-old female presents to the emergency Department a [place] act by local police. The patient was discharged from the hospital 4 days ago. She states that she was feeling great on Tuesday. However, yesterday, she started becoming more and more manic. She states that she has not slept in 3 days. Patient states that she had intermittent suicidal thoughts, but has not at this time. She states that she took approximately 10-15 Vistaril 25 mg tablets last night around midnight to try to sleep. She states this was not a suicide attempt. She states that it did not help and she was unable to sleep. The patient states that she rode her bike to [facility] this morning for an emergent appointment. At that time, she was Steele acted and brought to [place]. Patient reports history of bipolar disorder. She denies any alcohol or tobacco use, but does smoke marijuana. Patient denies any medical complaints at this time. She denies . PFSH Past Medical History Bipolar Disorder: Yes Anxiety: Yes Depression: Yes Cancer: No Cardiovascular Problems: Yes Cerebrovascular Accident: No Diabetes: Yes (pre-diabetic) Endocrine: Yes Genitourinary: No Musculoskeletal: No Neurologic: Yes Psychiatric: Yes Reproductive: Yes (spotting) Respiratory: No Migraines: Yes Schizophrenia: Yes Seizures: No Thyroid Disease: No ?: Not Past Surgical History Oral Surgery: Yes Tonsillectomy: Yes Other Surgery: Yes (NASAL SEPTUM ) Social History Alcohol Use: No Tobacco Use: No Substance Use: Yes (experimental when younger and pot) Allergies-Medications (Allergen,Severity, Reaction): Coded Allergies: Tegretol (Verified Allergy, Intermediate, MOUTH ULCERS,LIPS PEEL, 03/09/17) Hydrocodone (Verified Allergy, Mild, MIGRAINE IRWIN, 03/09/17) Reported Meds & Prescriptions Reported Meds & Active Scripts Active Latuda (Lurasidone) 40 Mg Tab 40 Mg PO WITH DINNER Lamictal (Lamotrigine) 25 Mg Tab 25 Mg PO Q12HR Wellbutrin SR 12 HR (Bupropion HCl) 150 Mg Tab 150 Mg PO DAILY Reported Excedrin Migraine (Vpnmnbt-Zjizytwjnysmg-Vqvmwwrg) 250-250-65 Mg Tab 2 Tab PO PRN Hydroxyzine Pamoate 25 Mg Cap 25 Mg PO HS PRN Review of Systems Except as stated in HPI: all other systems reviewed are Neg Physical Exam Narrative GENERAL: Well-nourished, well-developed female patient, ambulatory. Afebrile. SKIN: Focused skin assessment warm/dry. HEAD: Normocephalic. Atraumatic. EYES: No scleral icterus. No injection or drainage. NECK: Supple, trachea midline. No JVD or lymphadenopathy. CARDIOVASCULAR: Regular rate and rhythm without murmurs, gallops, or rubs. RESPIRATORY: Breath sounds equal bilaterally. No accessory muscle use. Lungs sounds are clear to auscultation. GASTROINTESTINAL: Abdomen soft, non-tender, nondistended. MUSCULOSKELETAL: No cyanosis, or edema. PSYCHIATRIC: No delusional thought processes. No hallucinations. Data Data Last Documented VS Vital Signs Date Time Temp Pulse Resp B/P Pulse Ox O2 Delivery O2 Flow Rate FiO2 03/09/17 15:13 Room Air 03/09/17 15:01 98 03/09/17 14:13 98.4 76 18 134/81 Orders Electrocardiogram (03/09/17 14:17) Complete Blood Count With Diff (03/09/17 14:17) Comprehensive Metabolic Panel (03/09/17 14:17) Urinalysis - C+S If Indicated (03/09/17 14:17) Ecg Monitoring (03/09/17 14:17) Oximetry (03/09/17 14:17) Sodium Chloride 0.9% Flush (Ns Flush) (03/09/17 14:30) Drug Screen, Random Urine (03/09/17 14:17) Alcohol (Ethanol) (03/09/17 14:17) Salicylates (Aspirin) (03/09/17 14:17) Tylenol (Acetaminophen) (03/09/17 14:17) Ed Urine Pregnancytest Poc (03/09/17 14:17) Urine Culture (03/09/17 14:45) Labs Laboratory Tests Test 03/09/17 14:45 White Blood Count 13.6 TH/MM3 Red Blood Count 5.06 MIL/MM3 Hemoglobin 14.3 GM/DL Hematocrit 42.3 % Mean Corpuscular Volume 83.5 FL Mean Corpuscular Hemoglobin 28.3 PG Mean Corpuscular Hemoglobin 33.9 % Concent Red Cell Distribution Width 13.7 % Platelet Count 245 TH/MM3 Mean Platelet Volume 9.0 FL Neutrophils (%) (Auto) 64.3 % Lymphocytes (%) (Auto) 26.0 % Monocytes (%) (Auto) 7.9 % Eosinophils (%) (Auto) 1.3 % Basophils (%) (Auto) 0.5 % Neutrophils # (Auto) 8.7 TH/MM3 Lymphocytes # (Auto) 3.5 TH/MM3 Monocytes # (Auto) 1.1 TH/MM3 Eosinophils # (Auto) 0.2 TH/MM3 Basophils # (Auto) 0.1 TH/MM3 CBC Comment DIFF FINAL Differential Comment Urine Color YELLOW Urine Turbidity HAZY Urine pH 6.0 Urine Specific [place] 1.012 Urine Protein TRACE mg/dL Urine Glucose (UA) NEG mg/dL Urine Ketones NEG mg/dL Urine Occult Blood LARGE Urine Nitrite NEG Urine Bilirubin NEG Urine Urobilinogen LESS THAN 2.0 MG/DL Urine Leukocyte Esterase LARGE Urine RBC 14 /hpf Urine WBC 25 /hpf Urine Squamous Epithelial 5 /hpf Cells Urine Bacteria FEW /hpf Urine Mucus FEW /lpf Microscopic Urinalysis Comment CULTURE INDICATED Sodium Level 137 MEQ/L Potassium Level 3.9 MEQ/L Chloride Level 105 MEQ/L Carbon Dioxide Level 20.0 MEQ/L Anion Gap 12 MEQ/L Blood Urea Nitrogen 13 MG/DL Creatinine 0.89 MG/DL Estimat Glomerular Filtration 77 ML/MIN Rate Random Glucose 81 MG/DL Calcium Level 9.8 MG/DL Total Bilirubin 0.4 MG/DL Aspartate Amino Transf 60 U/L (AST/SGOT) Alanine Aminotransferase 103 U/L (ALT/SGPT) Alkaline Phosphatase 94 U/L Total Protein 9.0 GM/DL Albumin 4.3 GM/DL Salicylates Level 1.7 MG/DL Urine Opiates Screen NEG Acetaminophen Level LESS THAN 2.0 MCG/ML Urine Barbiturates Screen NEG Urine Amphetamines Screen NEG Urine Benzodiazepines Screen NEG Urine Cocaine Screen NEG Urine Cannabinoids Screen POS Ethyl Alcohol Level 4 MG/DL [facility] Medical Decision Making Medical Screen Exam Complete: Yes Emergency Medical Condition: Yes Medical Record Reviewed: Yes Differential Diagnosis Bipolar disorder versus mood disorder versus Vistaril overdose Narrative Course 26-year-old female presents to the emergency Department under Steele act for psychiatric evaluation. Patient denies any medical complaints at this time. EKG, CBC, CMP, urine drug screen, alcohol level, salicylate level, Tylenol level , UA, urine test are ordered and pending. EKG shows sinus rhythm, heart rate 75, no acute ST changes. CBC shows leukocytosis 13.6. CMP shows elevated AST 60, ALT 103. Alcohol level is 4. Salicylate level is 1.7. Tylenol level is less than 2.0. UDS is positive for cannabinoids. UA shows large leukocyte esterase, 25 WBCs, culture indicated. UPT is negative. Patient will be started on Macrobid for UTI. Patient is medical cleared for psychiatric screening and disposition. Mental health screening discussed with the patient. Psychiatric screen ordered. Diagnosis Primary Impression: Bipolar disorder, current episode mixed, severe, with psychotic features Additional Instructions: Patient is medically cleared for psychiatric screening and disposition Condition: Stable Jaclyn Pascal Mar 09, 2017 14:26
[2017-03-09] MEDS ORDERED: SODIUM CHLORIDE 0.9% FLUSH 10 ML FLUSH IVF PRN (14:30)
[2017-03-09 15:01] VITALS: O2SAT 98
[2017-03-09 15:20] LABS: AUTOMATED NEUTROPHIL # 8.7 TH/MM3 (1.8-7.7); BASOPHIL # 0.1 TH/MM3 (0-0.2); BASOPHIL % 0.5 % (0.0-2.0); EOSINOPHIL # 0.2 TH/MM3 (0-0.4); EOSINOPHIL % 1.3 % (0.0-4.0); HEMATOCRIT 42.3 % (35.0-46.0); HEMO FLAGS DIFF FINAL; LYMPHOCYTE # 3.5 TH/MM3 (1.0-4.8); MEAN CELL VOLUME 83.5 FL (80.0-100.0); MEAN CORPUSCULAR HEMOGLOBIN 28.3 PG (27.0-34.0); MEAN CORPUSCULAR HGB CONC 33.9 % (32.0-36.0); MONO % 7.9 % (0.0-8.0); NEUT % 64.3 % (16.0-70.0); PLATELET COUNT 245 TH/MM3 (150-450); RED BLOOD COUNT 5.06 MIL/MM3 (4.00-5.30); RED CELL DISTRIBUTION WIDTH 13.7 % (11.6-17.2); WHITE BLOOD COUNT 13.6 TH/MM3 (4.0-11.0)
[2017-03-09 15:25] LABS: BACTERIA, URINE FEW /hpf; BLOOD, URINE LARGE (NEG); COMMENT (UR) CULTURE INDICATED; CULTURE IF INDICATED CULTURE INDICATED; GLUCOSE,URINE NEG (NEG); KETONE, URINE NEG (NEG); MUCUS URINE FEW /lpf (OCC); NITRITE,URINE NEG (NEG); SQUAMOUS EPITHELIAL CELL URINE 5 /hpf (0-5); URINE COLOR YELLOW (YELLW/STRAW)
[2017-03-09 15:41] LABS: ALT (GPT) 103 U/L (10-53); AMPHETAMINE, URINE NEG (NEG); ANION GAP 12 MEQ/L (5-15); AST (GOT) 60 U/L (15-37); BARBITURATES, URINE NEG (NEG); BLOOD UREA NITROGEN 13 MG/DL (7-18); CHLORIDE 105 MEQ/L (98-107); COCAINE, URINE NEG (NEG); GLOMERULAR FILTRATION RATE 77 ML/MIN (>89); POTASSIUM 3.9 MEQ/L (3.5-5.1); SODIUM (NA) 137 MEQ/L (136-145)
[2017-03-09 15:44] LABS: ALKALINE PHOSPHATASE 94 U/L (45-117); TOTAL BILIRUBIN ADULT 0.4 MG/DL (0.2-1.0)
[2017-03-09 15:57] LABS: ACETAMINOPHEN LESS THAN 2.0 MCG/ML (10.0-30.0)
[2017-03-09 18:00] VITALS: BP 132/85; PULSE 77; RESP 17; O2SAT 97
[2017-03-09] MEDS ORDERED: NITROFURANTOIN MONOHYD MACROCR 100 MG CAP PO SCH (18:00)
[2017-03-09 20:43] VITALS: BP 143/81; PULSE 75; RESP 18; O2SAT 97
[2017-03-10 02:03] VITALS: BP 140/64; PULSE 71; RESP 18; O2SAT 97
[2017-03-10 06:00] VITALS: BP 145/80; PULSE 72; RESP 18; O2SAT 99
--- NOTE | 2017-03-10 09:21 | PD ---
History of Present Illness Chief Complaint: OD/ Ingestion Time Seen by Provider: 09:00 Travel History International Travel<30 Days: No Contact w/Intl Traveler<30days: No Known affected area: No Legal Status Legal Status: Steele Act Steele Act Signed By: CHEL WILKINSON. Steele Act Comment: 03/09/17 120 PM History of Present Illness: History of Present Illness HPI 26-year-old female with history of bipolar disorder who presents to the emergency Department under a [place] act by local police. The patient was discharged from the hospital 4 days ago. She states that she was feeling great on Tuesday. However, yesterday, she started becoming more and more manic and was unable to sleep x 3 days. Patient states that she had intermittent suicidal thoughts. She states that she took approximately 10-15 Vistaril 25 mg tablets last night around midnight to try to sleep. She states this was not a suicide attempt. She states that it did not help and she was unable to sleep. The patient states that she rode her bike to [facility] this morning for an emergent appointment and was sent to [facility].. EMR reviewed. She was last admitted to [facility] on March 03 and discharged on March 05 under the care of Dr. Pickens. She reports that she has been medication compliant. Current toxicology is positive for cannabinoids and she admits to smoking marijuana to help herself sleep. Patient has been monitored in [facility]. She slept well. She presented no behavioral concerns and no suicidality. This morning she is alert, oriented, calm and engaging. She is not manic or hypomanic. Her speech is clear and logical. There is no indication that she is internally preoccupied. Patient denies any suicidal or homicidals ideation, intent or plan. She has stopped the Wellbutrin which she believes caused her symptoms. PFSH Past Medical History Bipolar Disorder: Yes Anxiety: Yes Depression: Yes Cancer: No Cardiovascular Problems: Yes Cerebrovascular Accident: No Diabetes: Yes (pre-diabetic) Patient Takes Glucophage: No Diminished Hearing: No Endocrine: Yes Genitourinary: No Hypertension: Yes Musculoskeletal: No Neurologic: Yes Psychiatric: Yes Reproductive: Yes (spotting) Respiratory: No Migraines: Yes Schizophrenia: Yes Seizures: No Thyroid Disease: No Tetanus Vaccination: > 5 Years Influenza Vaccination: No ?: Not LMP: january 31 Past Surgical History Oral Surgery: Yes Tonsillectomy: Yes Other Surgery: Yes (NASAL SEPTUM ) Psychiatric History Psychiatric History Hx Psychiatric Treatment: Pt. was discharged from [facility] on 03-03-17. History of Inpatient Treatment: Yes Guns or firearms in home: No Social History Single female. Attends [employer]. Hx Alcohol Use: No Hx Tobacco Use: No Hx Substance Use: Yes Substance Use Type: Marijuana Other Substances Used: Pt. is positive for cannabis Hx of Substance Use Treatment: No Family Psychiatric History none reported Allergies-Medications (Allergen,Severity, Reaction): Coded Allergies: Tegretol (Verified Allergy, Intermediate, MOUTH ULCERS,LIPS PEEL, 03/09/17) Hydrocodone (Verified Allergy, Mild, MIGRAINE IRWIN, 03/09/17) Reported Meds & Prescriptions Reported Meds & Active Scripts Active Latuda (Lurasidone) 40 Mg Tab 40 Mg PO WITH DINNER Lamictal (Lamotrigine) 25 Mg Tab 25 Mg PO Q12HR Wellbutrin SR 12 HR (Bupropion HCl) 150 Mg Tab 150 Mg PO DAILY Reported Excedrin Migraine (Dbaphdj-Trhldsgelywkz-Jdzereri) 250-250-65 Mg Tab 2 Tab PO PRN Hydroxyzine Pamoate 25 Mg Cap 25 Mg PO HS PRN Review of Systems Except as stated in HPI: all other systems reviewed are Neg Psychiatric: COMPLAINS OF: Mood changes Exam Alert: Yes [place]: Person (ox4) Mood: Calm Affect: Appropriate Speech: Clear, Logical Eye Contact: Normal Memory Intact: Comment (no impairment) Hallucinations: Other (negative) Suicidal: Ideation (denies any) Homicidal: Ideation (denies any) Insight/Judgement Fair. Not impaired. MDM Medical Decision Making Medical Record Reviewed: Yes Assessment/Plan 26 year old female with history of bipolar disorder who was admitted after she took an unknown amount of Vistaril in an attempt to try and sleep. She denies that this was a suicide attempt but rather reports experiencing manic symptoms with inability to sleep. patient was monitored here in [facility] and she did in fact sleep well. She is not manic or hypomanic and at this time does not meet criteria for BA. Lift BA. Discharge to Home with Follow up at [facility]. Orders Electrocardiogram (03/09/17 14:17) Complete Blood Count With Diff (03/09/17 14:17) Comprehensive Metabolic Panel (03/09/17 14:17) Urinalysis - C+S If Indicated (03/09/17 14:17) Ecg Monitoring (03/09/17 14:17) Oximetry (03/09/17 14:17) Sodium Chloride 0.9% Flush (Ns Flush) (03/09/17 14:30) Drug Screen, Random Urine (03/09/17 14:17) Alcohol (Ethanol) (03/09/17 14:17) Salicylates (Aspirin) (03/09/17 14:17) Tylenol (Acetaminophen) (03/09/17 14:17) Ed Urine Pregnancytest Poc (03/09/17 14:17) Urine Culture (03/09/17 14:45) Nitrofurantoin Monohyd Macrocr (Macrobid (03/09/17 18:00) Psych Screen (03/09/17 16:09) Diet Regular Basic (03/09/17 Dinner) Diet Regular Basic (03/10/17 Breakfast) Diet Regular Basic (03/10/17 Lunch) Results Vital Signs Date Time Temp Pulse Resp B/P Pulse Ox O2 Delivery O2 Flow Rate FiO2 03/10/17 06:00 72 18 145/80 99 Room Air 03/10/17 02:03 71 18 140/64 97 Room Air 03/09/17 20:43 75 18 143/81 97 Room Air 03/09/17 18:00 77 17 132/85 97 Room Air 03/09/17 15:13 Room Air 03/09/17 15:01 98 Room Air 03/09/17 14:13 98.4 76 18 134/81 100 Room Air 03/09/17 14:08 98.4 Laboratory Tests Test 03/09/17 14:45 White Blood Count 13.6 Red Blood Count 5.06 Hemoglobin 14.3 Hematocrit 42.3 Mean Corpuscular Volume 83.5 Mean Corpuscular Hemoglobin 28.3 Mean Corpuscular Hemoglobin 33.9 Concent Red Cell Distribution Width 13.7 Platelet Count 245 Mean Platelet Volume 9.0 Neutrophils (%) (Auto) 64.3 Lymphocytes (%) (Auto) 26.0 Monocytes (%) (Auto) 7.9 Eosinophils (%) (Auto) 1.3 Basophils (%) (Auto) 0.5 Neutrophils # (Auto) 8.7 Lymphocytes # (Auto) 3.5 Monocytes # (Auto) 1.1 Eosinophils # (Auto) 0.2 Basophils # (Auto) 0.1 CBC Comment DIFF FINAL Differential Comment Urine Color YELLOW Urine Turbidity HAZY Urine pH 6.0 Urine Specific [place] 1.012 Urine Protein TRACE Urine Glucose (UA) NEG Urine Ketones NEG Urine Occult Blood LARGE Urine Nitrite NEG Urine Bilirubin NEG Urine Urobilinogen LESS THAN 2.0 Urine Leukocyte Esterase LARGE Urine RBC 14 Urine WBC 25 Urine Squamous Epithelial 5 Cells Urine Bacteria FEW Urine Mucus FEW Microscopic Urinalysis Comment CULTURE INDICATED Sodium Level 137 Potassium Level 3.9 Chloride Level 105 Carbon Dioxide Level 20.0 Anion Gap 12 Blood Urea Nitrogen 13 Creatinine 0.89 Estimat Glomerular Filtration 77 Rate Random Glucose 81 Calcium Level 9.8 Total Bilirubin 0.4 Aspartate Amino Transf 60 (AST/SGOT) Alanine Aminotransferase 103 (ALT/SGPT) Alkaline Phosphatase 94 Total Protein 9.0 Albumin 4.3 Salicylates Level 1.7 Urine Opiates Screen NEG Acetaminophen Level LESS THAN 2.0 Urine Barbiturates Screen NEG Urine Amphetamines Screen NEG Urine Benzodiazepines Screen NEG Urine Cocaine Screen NEG Urine Cannabinoids Screen POS Ethyl Alcohol Level 4 Date/Time Procedure Status Source Growth 03/09/17 14:45 Urine Culture Worksheet Urine Random Urine Pending Diagnosis Primary Impression: bipolar disorder Psychiatrically Cleared: Yes Additional Instructions: Patient is medically cleared for psychiatric screening and disposition Prescriptions Cephalexin (Keflex)500 Mg [id number] Mg PO Q12H 7 Days Ref 0 Prov:Tayla Yu [facility] 03/10/17 Disposition: 01 DISCHARGE HOME Condition: Stable Valentine Valdivia [facility] Mar 10, 2017 09:21
[2017-03-10] MEDS ORDERED: CEPH-460 PO (09:27)
--- NOTE | 2017-03-14 08:21 | EKG ---
Date Performed: 03/09/2017 Time Performed: 14:37:13 PTAGE: 26 years EKG: Sinus rhythm WITH SINUS ARRHYTHMIA NORMAL ECG Compared to prior tracing no significant change PREVIOUS TRACING : 03/04/2017 07.30 DOCTOR: Wally Ramos Interpretating Date/Time 03/14/2017 08:17:58
== END 2017-03-10 09:55 | disposition home or self-care (01) ==
LOC: NEPC 13:59 → NEPJ 03-10 09:55
DX: F31.9 Bipolar disorder, unspecified (principal); N39.0 Urinary tract infection, site not specified; F41.8 Other specified anxiety disorders; F12.10 Cannabis abuse, uncomplicated; F20.9 Schizophrenia, unspecified; I10 Essential (primary) hypertension; R73.03 Prediabetes; B96.89 Other specified bacterial agents as the cause of diseases classified elsewhere
CPT/HCPCS: 80053; 80307; 81001; 84703; 85025; 87086; 93005